=== PATIENT | female | born 1965 | race American Indian/Alaskan Native ===

== ENCOUNTER 2017-11-06 08:46 | Outpatient (CLI) | payer BC ==
--- NOTE | 2017-11-06 14:55 | XRay Report ---
ROUTINE CHEST, TWO VIEWS: Cough PA and lateral views demonstrate the heart and mediastinal contour to be of normal size and shape. The lungs are clear but hypo-expanded and the soft tissues and bony structures are normal. IMPRESSION: Normal study.
== END 2017-11-06 08:47 | disposition home or self-care (01) ==
LOC: XRAY 08:46
PROVIDERS: ATTEND Internal Medicine
DX: R05 Cough (principal)
CPT/HCPCS: 71046

== ENCOUNTER 2018-03-16 10:45 | Outpatient (CLI) | payer BC ==
--- NOTE | 2018-03-17 08:42 | Mammography Report ---
Screening mammogram: Routine views are compared to her prior examination in September 2012. There is an intermediate fibroglandular pattern which is symmetrically distributed bilaterally. Plaque-like areas of heavy calcification identified in both the lateral and medial aspects of the left breast. These calcifications have progressed since prior examination. The breast pattern otherwise however appears unchanged bilaterally. CAD used. Impression: No significant interval change. Recommendation: Annual mammogram followup. BI-RADS CATEGORY: 2 = Benign ACR BI-RADS MAMMOGRAPHIC CODES: 0 = Needs additional imaging evaluation; 1 = Negative; 2 = Benign; 3 = Probably benign; 4 = Suspicious; 5 = Malignant; 6 = Known biopsy-proven malignancy COMMENT: 1. Dense breast tissue, i.e., adenosis, fibrocystic changes, etc., may obscure an underlying neoplasm. 2. Approximately 10% of cancers are not detected with mammography. 3. A negative mammography report should not delay biopsy if a clinically suspicious mass is present.
== END 2018-03-16 10:46 | disposition home or self-care (01) ==
LOC: SPVWC 10:45
PROVIDERS: ATTEND Specialist
DX: Z12.31 Encounter for screening mammogram for malignant neoplasm of breast (principal)
CPT/HCPCS: 77067

== ENCOUNTER 2019-03-22 09:11 | Outpatient (CLI) | payer BC ==
--- NOTE | 2019-03-22 11:06 | Mammography Report ---
BILATERAL DIGITAL SCREENING MAMMOGRAM WITH CAD INDICATION: Routine screening mammography. TECHNIQUE: Digital bilateral 2D mammography was obtained in the craniocaudal and mediolateral obliq ue projections. This examination was interpreted with the benefit of Computer-Aided Detection analysi s. COMPARISON: 03/16/2018 FINDINGS: Breast Density: The breasts are heterogeneously dense, which may obscure small masses. No mass, suspicious architectural distortion or suspicious calcifications. Large left benign calcific ations are unchanged compared to the prior exam. The fibroglandular pattern suggests a history of a r eduction mammoplasty. IMPRESSION:No mammographic evidence of malignancy. BI-RADS Category 2: Benign. No mammographic evidence of malignancy. Recommend routine screening ma mmography in one year. A "normal" or negative report should not discourage follow up or biopsy of a clinically significant f inding. A written summary of these findings will be mailed to the patient. The patient will be entered into a mammography reporting system which will generate a reminder letter for the patient's next appointmen t at the appropriate interval. The [employer] recommends yearly mammograms starting at age 40 and continuing as l yamilex as a woman is in good health. Breast MRI is recommended for women with an approximate 20-25% or greater lifetime risk of breast cancer, including women with a strong family history of breast or ova antonino cancer or who have been treated for Hodgkin's disease. Signer Name: Eliecer Casas MD Signed: 03/22/2019 11:02 AM Workstation Name: [id number]
== END 2019-03-22 09:12 | disposition home or self-care (01) ==
LOC: SPVWC 09:11
PROVIDERS: ATTEND Internal Medicine
DX: Z12.31 Encounter for screening mammogram for malignant neoplasm of breast (principal)
CPT/HCPCS: 77067